=== PATIENT | male | born 1970 | race Caucasian/White ===

== ENCOUNTER 2022-08-18 11:18 | Emergency (ER) | payer OTHER ==
[~2022-08-18] VITALS: Ht 177.8 cm; Wt 113.6 kg
[~2022-08-18 11:18] MED LIST: NOCURR
[2022-08-18 11:53] VITALS: BP 150/89
[2022-08-18] MEDS ORDERED: IBUP-2070 PO (13:08)
[2022-08-18] MEDS ORDERED: ERYT3.5O8 OU (13:08)
[2022-08-18] MEDS ORDERED: CYCL12OS OD (13:08)
== END 2022-08-18 13:34 | disposition home or self-care (01) ==
LOC: EMS 11:18
DX: H20.9 Unspecified iridocyclitis (principal); Z86.69 Personal history of other diseases of the nervous system and sense organs
CPT/HCPCS: 99283

== ENCOUNTER 2024-07-15 08:07 | Emergency (ER) | payer MEDICAID, OTHER ==
[~2024-07-15] VITALS: Ht 177.8 cm; Wt 131.8 kg
[~2024-07-15 08:07] MED LIST changes: +CYCL12OS OD; +ERYT3.5O8 OU; +IBUP-1492 PO; +LIDO700A15 TP
[2024-07-15 08:10] VITALS: BP 133/94; PULSE 74; RESP 19; TEMP 97.9; O2SAT 97
[2024-07-15] MEDS ORDERED: ONDANSETRON HCL 4 MG/2 ML VIAL IM ONE (08:30)
[2024-07-15] MEDS: ONDANSETRON HCL 4 MG/2 ML VIAL IVP ONE (08:45)
[2024-07-15] MEDS: MECLIZINE HCL 25 MG TABLET PO ONE (08:45)
[2024-07-15] MEDS: SODIUM CHLORIDE 0.9% 1,000 ML IV ONE (08:46)
[2024-07-15] MEDS ORDERED: ONDA-104 PO (09:22)
[2024-07-15] MEDS ORDERED: MECL-302 PO (09:22)
== END 2024-07-15 10:03 | disposition home or self-care (01) ==
LOC: EMS 08:07
DX: R42 Dizziness and giddiness (principal); R11.2 Nausea with vomiting, unspecified; F12.90 Cannabis use, unspecified, uncomplicated; Z98.890 Other specified postprocedural states
CPT/HCPCS: 99285; 96374; 70450; 96361; J2405; J7030